=== PATIENT | female | born 1980 ===

== ENCOUNTER 2016-08-21 19:49 | Emergency (ER) | payer SELFPAY ==
[2016-08-21 19:56] VITALS: BP 122/76; PULSE 73; RESP 18; TEMP 99.2; O2SAT 100
--- NOTE | 2016-08-21 20:23 | ED PDOC ---
HPI: Female Pain Additional Complaint(s): 35yo F with PMHx SAB c/o vaginal bleeding. vaginal bleeding started at 4PM today after sexual intercourse, continued to have minimal spotting till now on pad. Denies blood clots, no blood in the toilet bowl. Denies fever, chills, nausea, vomiting, abdominal pain. Had 1st trimester US completed yesterday and told everything looked appropriate. OB at [facility], last visit 08/18/16. Blood type B+ <Valencia Sheriff - Last Filed: 08/21/16 22:03> <Rey Lee - Last Filed: 08/21/16 22:10> Time Seen by Provider: 08/21/16 20:11 Chief Complaint (Nursing): Female Genitourinary Supervising Attending Note - Supervising Attending Note The Documented history was done by the: Physician Craniologist, Attending Physician The documented physical exam was done by the: Physician Craniologist, Attending Physician The documented procedures were done by the: Physician Craniologist, Attending Physician - Attestation: I have personally seen and examined this patient.: Yes I have fully participated in the care of the patient.: Yes I have reviewed all pertinent clinical information, including history, physical exam and plan: Yes <Rey Lee - Last Filed: 08/21/16 22:10> Past Medical History Vital Signs: Last Vital Signs Temp 99.2 F 08/21/16 19:52 Pulse 73 08/21/16 19:52 Resp 18 08/21/16 19:52 BP 122/76 08/21/16 19:52 Pulse Ox 100 08/21/16 19:52 - Family History Family History: States: Unknown Family Hx - Immunization History Hx Tetanus Toxoid Vaccination: No Hx Influenza Vaccination: No Hx Pneumococcal Vaccination: No <Ricco Sheriffg - Last Filed: 08/21/16 22:03> Vital Signs: Last Vital Signs Temp 99.2 F 08/21/16 19:52 Pulse 73 08/21/16 19:52 Resp 18 08/21/16 19:52 BP 122/76 08/21/16 19:52 Pulse Ox 100 08/21/16 20:36 <Rey Lee - Last Filed: 08/21/16 22:10> - Home Medications Home Medications: Ambulatory Orders Medication Instructions Recorded Cyclobenzaprine [Cyclobenzaprine 10 mg PO BID #15 tab 04/18/16 HCl] Ibuprofen [Motrin Tab] 600 mg PO Q6 #30 tab 04/18/16 - Allergies Allergies/Adverse Reactions: Allergies Allergy/AdvReac Type Severity Reaction Status Date / Time No Known Allergies Allergy Verified 03/01/16 11:18 Review of Systems ROS Statement: Except As Marked, All Systems Reviewed And Found Negative Gastrointestinal: Negative for: Nausea, Vomiting, Abdominal Pain Genitourinary Female: Positive for: Vaginal Bleeding. Negative for: Dysuria, Hematuria < - Last Filed: 08/21/16 22:03> Physical Exam - Physical Exam Appears: Positive for: Well, No Acute Distress Head Exam: Positive for: ATRAUMATIC, NORMAL INSPECTION Skin: Positive for: Warm, Dry Eye Exam: Positive for: Normal appearance. Negative for: Scleral icterus Neck: Positive for: Normal, Supple Cardiovascular/Chest: Positive for: Regular Rate, Rhythm Respiratory: Positive for: Normal Breath Sounds Gastrointestinal/Abdominal: Positive for: Normal Exam, Bowel Sounds, Soft. Negative for: Tenderness, Guarding <g - Last Filed: 08/21/16 22:03> - ECG O2 Sat by Pulse Oximetry: 100 < - Last Filed: 08/21/16 22:03> Medical Decision Making Medical Decision Makin [place] [facility] [place]A Blood type B+ reassessment [address] [facility] [place] [id number] [place] limited results as above d/c home, FU with OB Dr. Benton Oakley < - Last Filed: 08/21/16 22:03> Medical Decision Making: TECHNIQUE: Real-time transabdominal obstetrical ultrasound of the maternal pelvis and a first trimester with image documentation. COMPARISON: No relevant prior studies available. FINDINGS: Gestation: Single live intrauterine gestation. heart rate of 169 beats per minute. [place]-rump length of 2.42 cm, correlating with gestational age of 9 weeks 1 day. Uterus/cervix: No subchorionic hemorrhage. No cervical dilatation or effacement. 1.5 x 1.1 x 1.5 cm lower anterior uterine mass. Ovaries: RIGHT ovary: 3.8 x 4.5 x 4.6 cm anechoic lesion. LEFT ovary: Normal. No adnexal masses. Free fluid: No significant free fluid. IMPRESSION: 1. Single live intrauterine gestation. 2. Probable fibroid. 3. RIGHT ovarian cyst. 4. Incidental/non-acute findings are described abov <Rey Lee - Last Filed: 08/21/16 22:10> Disposition - Disposition Disposition Time: 22:07 <Valencia Sheriff - Last Filed: 08/21/16 22:03> - Patient ED Disposition Is Patient to be Admitted: No Doctor Will See Patient In The: Office Counseled Patient/Family Regarding: Studies Performed, Diagnosis, Need For Followup - Disposition Disposition: Routine/Home <Rey Lee - Last Filed: 08/21/16 22:10> - Clinical Impression Clinical Impression: Vaginal bleeding before 22 weeks gestation - Disposition Referrals: [facility] [Outside] Benton Oakley MD [Family Provider] - Condition: GOOD Additional Instructions: Follow up with your PCP in 2-3 days. Instructions: Threatened Miscarriage (ED) Print Language: SETSWANA
[2016-08-21 20:51] LABS: RBC URINE 2 /hpf (0-3); URINE BILIRUBIN NEGATIVE (NEGATIVE); URINE BLOOD LARGE (NEGATIVE); URINE COLOR YELLOW (YELLOW); URINE GLUCOSE (UA) NEG (Normal); URINE KETONE NEGATIVE (NEGATIVE); URINE LEUKOCYTE ESTERASE NEG Leu/uL (Negative); URINE PROTEIN NEGATIVE (NEGATIVE); URINE UROBILINOGEN 0.2-1.0 mg/dL (0.2-1.0); WBC URINE 2 /hpf (0-5)
--- NOTE | 2016-08-21 21:27 | US ---
EXAM: US First Trimester, Transabdominal CLINICAL HISTORY: 35 years old, female; Signs and symptoms; Lmp or gestational age (in weeks): 06/18/16; Antepartum complications; Other: Spotting; ; Additional info: Vaginal bleeding, spotting TECHNIQUE: Real-time transabdominal obstetrical ultrasound of the maternal pelvis and a first trimester with image documentation. COMPARISON: No relevant prior studies available. FINDINGS: Gestation: Single live intrauterine gestation. heart rate of 169 beats per minute. [place]-rump length of 2.42 cm, correlating with gestational age of 9 weeks 1 day. Uterus/cervix: No subchorionic hemorrhage. No cervical dilatation or effacement. 1.5 x 1.1 x 1.5 cm lower anterior uterine mass. Ovaries: RIGHT ovary: 3.8 x 4.5 x 4.6 cm anechoic lesion. LEFT ovary: Normal. No adnexal masses. Free fluid: No significant free fluid. IMPRESSION: 1. Single live intrauterine gestation. 2. Probable fibroid. 3. RIGHT ovarian cyst. 4. Incidental/non-acute findings are described above.
== END 2016-08-21 22:09 | disposition home or self-care (01) ==
LOC: H.ER 19:49
DX: O20.8 Other hemorrhage in early pregnancy (principal); N83.201 Unspecified ovarian cyst, right side

== ENCOUNTER 2016-12-22 17:00 | Emergency (ER) | payer MEDICAID ==
[2016-12-22 17:20] VITALS: BP 116/67; PULSE 85; RESP 16; TEMP 97.6; O2SAT 100
--- NOTE | 2016-12-22 17:35 | ED PDOC ---
HPI: CCC, URI, Sore Throat Time Seen by Provider: 12/22/16 17:21 Chief Complaint (Nursing): Cough, Cold, Congestion Chief Complaint (Provider): URI symptoms History Per: Patient Onset/Duration Of Symptoms: Days (3) Current Symptoms Are (Timing): Still Present Location Of Pain: Throat Associated Symptoms: Fever (subjective), Sore Throat, Cough, Sinus Drainage, Nasal Congestion. denies: Sputum, Myalgias, Vomiting, Diarrhea, Other ( abdominal pain or vaginal discharge or bleeding) Severity: Moderate Additional Complaint(s): Pt 26 weeks Past Medical History Reviewed: Historical Data, Nursing Documentation, Vital Signs Vital Signs: Last Vital Signs Temp 97.6 F 12/22/16 17:17 Pulse 85 12/22/16 17:17 Resp 16 12/22/16 17:17 BP 116/67 12/22/16 17:17 Pulse Ox 100 12/22/16 17:36 - Medical History PMH: No Chronic Diseases - Surgical History Surgical History: No Surg Hx - Family History Family History: States: No Known Family Hx - Social History Current smoker - smoking cessation education provided: No - Immunization History Hx Tetanus Toxoid Vaccination: No Hx Influenza Vaccination: No Hx Pneumococcal Vaccination: No - Home Medications Home Medications: Ambulatory Orders Medication Instructions Recorded Cyclobenzaprine [Cyclobenzaprine 10 mg PO BID #15 tab 04/18/16 HCl] Ibuprofen [Motrin Tab] 600 mg PO Q6 #30 tab 04/18/16 Budesonide [Rhinocort Allergy] 2 spray NS BID #1 bottle 12/22/16 Loratadine [Claritin] 10 mg PO DAILY #14 tab 12/22/16 - Allergies Allergies/Adverse Reactions: Allergies Allergy/AdvReac Type Severity Reaction Status Date / Time No Known Allergies Allergy Verified 03/01/16 11:18 Review of Systems ROS Statement: Except As Marked, All Systems Reviewed And Found Negative (and as per HPI) Constitutional: Positive for: Fever ENT: Positive for: Nose Discharge, Nose Congestion, Throat Pain. Negative for: Throat Swelling Cardiovascular: Negative for: Chest Pain Respiratory: Positive for: Cough Physical Exam - Reviewed Nursing Documentation Reviewed: Yes Vital Signs Reviewed: Yes - Physical Exam Appears: Positive for: Well, No Acute Distress Head Exam: Positive for: ATRAUMATIC, NORMOCEPHALIC Skin: Positive for: Warm, Dry Eye Exam: Positive for: EOMI, PERRL ENT: Positive for: Pharynx Is (clear), Nasal Congestion (boggy turbinates with minimal erythema). Negative for: Sinus Pain/Drainage, Pharyngeal Erythema, Tonsillar Exudate Neck: Positive for: Painless ROM, Supple Cardiovascular/Chest: Positive for: Regular Rate, Rhythm, Chest Non Tender. Negative for: Murmur Respiratory: Positive for: Normal Breath Sounds. Negative for: Rales, Wheezing , Respiratory Distress Gastrointestinal/Abdominal: Positive for: Other (gravid >20 weeks). Negative for: Tenderness Back: Positive for: Normal Inspection. Negative for: Decreased ROM Extremity: Positive for: Normal ROM Lymphatic: Negative for: Adenopathy Neurologic/Psych: Positive for: Alert. Negative for: Motor/Sensory Deficits - ECG O2 Sat by Pulse Oximetry: 100 Disposition - Clinical Impression Clinical Impression: rhinitis, URI, acute Counseled Patient/Family Regarding: Studies Performed, Diagnosis, Need For Followup, Rx Given - Disposition Referrals: [facility] [Outside] (VISITA A ALEX [facility] EN 5-7 HASKINS A CHEQAR DE NEUVO) Disposition: Routine/Home Disposition Time: 18:00 Condition: STABLE Prescriptions: Budesonide [Rhinocort Allergy] 2 spray NS BID #1 bottle Loratadine [Claritin] 10 mg PO DAILY #14 tab Instructions: Budesonide (Into the nose), Upper Respiratory Infection (ED), Allergic Rhinitis (ED) Print Language: UZBEK
== END 2016-12-22 18:40 | disposition home or self-care (01) ==
LOC: H.ER 17:00
DX: J31.0 Chronic rhinitis (principal); J06.9 Acute upper respiratory infection, unspecified; Z33.1 Pregnant state, incidental

== ENCOUNTER 2017-03-31 05:06 | Emergency (ER) | payer MEDICAID, SELFPAY ==
--- NOTE | 2017-03-31 07:56 | OBHP ---
Datetime: 03/31/2017 06:38 IP Adm Impression: Term, intrauterine IP Admit Plan: Observation/Evaluation Admit Comment, IP Provider: 36 y/o F at 40.6 weeks GA, BINU 03/25/17 by LMP 06/18/16 and confir med by 1st trim US, c/o LOF and scant bleeding that began at 4 am today. Pt reports feeling and seein g small quantitify of clear liquid and some blood spotting. No frequent CTX reported. FM present. Pt with GDM which is controlled with diet only. Pt denies fever, headache, dizziness, CP, SOB, urinary c omplaints or rash. NKDA PNC Clinic: [facility]. PN Labs: GBS POSITIVE, GC/Chlamydia neg, HIV, neg, HBsAg neg, RPR neg, blood group B pos, antibody neg, rubella immune. US at 39 weeks GA: cephalic presentation, MANINDER normal and EFW _3844gr. OBHx: , 1 spontaneous at 8 weeks GA. GDMA1 with current . PMHx: denied. PSHx: denied FHx: denied. SHx: No tobacco, alcohol or rec drugs. A/P: 36 y/o F with IUP at 40.6 weeks GA, GDM A1 and AMA, with supected ROM. - Monitor FHT. - Will re-evalaute pt in 1 hour. Case discussed with Dr Rodriguez, OB health information director. Timmy PGY-1 Patient was seen with resident and I agree with the note. bedside sonogram adequate fluid vertexpr esentation will d/c home f/u this evening for IOL Pelvic Type - PN: Adequate Extremities - PN: Normal Abdomen - PN: Normal Lungs - PN: Normal Heart - PN: Normal Thyroid - PN: Normal Neurologic - PN: Normal HEENT - PN: Normal General - PN: Normal Presentation-Admit: Vertex FHR - Baseline A Provider: 145 Membranes, Provider: Intact Gestation - Est Wks by US: 40.6 Pool Provider: Negative Nitrazine Provider: Negative IP Hx Assessment: The History has been Reviewed and is Current EGA AdmitDate IP: 40.6 Vital Signs Provider: Reviewed IP Chief Complaint: Suspected ruptured membranes NICHD Variability Prov Fetus A: Moderate 6-25bpm FHR Category Provider Fetus A: Category I Dilatation, Provider: 1-2 Effacement, Provider: 50% Station, Provider: -2
== END 2017-03-31 08:30 | disposition home or self-care (01) ==
LOC: H.EROB2 05:06
DX: O47.1 False labor at or after 37 completed weeks of gestation (principal); Z3A.40 40 weeks gestation of pregnancy; O24.419 Gestational diabetes mellitus in pregnancy, unspecified control

== ENCOUNTER 2017-03-31 10:39 | Inpatient (IN) | payer MEDICAID, SELFPAY ==
[2017-03-31 12:01] VITALS: BMI 32.1
[2017-03-31] MEDS ORDERED: AMPicillin 2 GM in Sodium Chloride 0.9% 100 ML IVPB STA (12:01)
[2017-03-31] MEDS ORDERED: AMPicillin 1 GM in Sodium Chloride 0.9% 100 ML IVPB SCH (12:15)
--- NOTE | 2017-03-31 13:05 | OBHP ---
Datetime: 03/31/2017 11:00 IP Adm Impression: Term, intrauterine ; No Active Labor; Intact Membranes IP Admit Plan: Admit to unit; Initiate labor induction protocol Admit Comment, IP Provider: IUP at 40+w GDMA1 sent home a few hour sago. She still has ctx pain, Wants to be admitted for IOL. Doesnt' want to go home and come back..+FM; no VB; no SROM PNC: [facility] see previous note GBS+ A: IUP at 40w early labor PLAN Admit to L_D observe progress Discussion abotu IOL, pain management, medications, labor and delivey...she agrees to starting Cyt otec. Check Accuchecks Pelvic Type - PN: Adequate Extremities - PN: Normal Abdomen - PN: Normal Back - PN: Normal Breast - PN: Not Done Lungs - PN: Normal Heart - PN: Normal Thyroid - PN: Normal Neurologic - PN: Normal HEENT - PN: Normal General - PN: Normal Presentation-Admit: Vertex Membranes, Provider: Intact Comments, ACOG Physical Exam: PN Labs: GBS POSITIVE, GC/Chlamydia neg, HIV, neg, HBsAg neg, RPR neg, blood group B pos, antibody neg, rubella immune. US at 39 weeks GA: cephalic presentation, MANINDER normal and EFW _3844gr. OBHx: , 1 spontaneous at 8 weeks GA. GDMA1 with current . PMHx: denied. PSHx: denied FHx: denied. SHx: No tobacco, alcohol or rec drugs. Pool Provider: Negative IP Hx Assessment: The History has been Reviewed and is Current EGA AdmitDate IP: 40.6 IP Chief Complaint: Uterine contractions FHR Category Provider Fetus A: Category I NICHD Decel Fetus A IP Provider: None Dilatation, Provider: 1 Effacement, Provider: long Station, Provider: high Genitourinary Exam: Normal DTRs - PN: Normal
[2017-03-31 13:13] LABS: BASO % 0.4 % (0.0-2.0); EOS % 0.4 % (0.0-4.0); LYMPH # 1.3 K/uL (1.0-4.3); LYMPH % 15.7 % (20.0-40.0); MEAN CELL VOLUME 93.9 fl (81.0-99.0); MEAN CORPUSCULAR HEMOGLOBIN 32.1 pg (27.0-31.0); MEAN CORPUSCULAR HGB CONC 34.2 g/dL (33.0-37.0); MEAN PLATELET VOLUME 11.3 fl (7.2-11.7); MONO # 0.7 K/uL (0.0-0.8); MONO % 7.9 % (0.0-10.0); NEUT # 6.5 K/uL (1.8-7.0); NEUT % 75.6 % (50.0-75.0); NRBC % 0.2 % (0.0-0.0); RED CELL DISTRIBUTION WIDTH 13.7 % (11.5-14.5); WHITE BLOOD COUNT 8.6 K/uL (4.8-10.8)
[2017-03-31 13:17] LABS: BLOOD UREA NITROGEN 10 mg/dl (7-17); CALCIUM 9.5 mg/dL (8.4-10.2); CARBON DIOXIDE 21 mmol/L (22-30); CHLORIDE 106 mmol/L (98-107); GFR AFRICAN-AMERICAN > 60; GLUCOSE,RANDOM 73 mg/dL (65-105); POTASSIUM 4.1 MMOL/L (3.6-5.0); SODIUM 133 mmol/l (132-148)
[2017-03-31] MEDS: Lactated Ringer's 1,000 ML IV SCH ×3 (18:15→21:30)
[2017-03-31 18:32] LABS: BLOOD UREA NITROGEN 8 mg/dl (7-17); CALCIUM 9.2 mg/dL (8.4-10.2); CARBON DIOXIDE 21 mmol/L (22-30); CHLORIDE 105 mmol/L (98-107); GFR AFRICAN-AMERICAN > 60; GLUCOSE,RANDOM 88 mg/dL (65-105); POTASSIUM 3.7 MMOL/L (3.6-5.0); SODIUM 135 mmol/l (132-148)
[2017-03-31] MEDS ORDERED: Fentanyl/Bupivacaine HCl 250 ML EPI ONE (21:03)
--- NOTE | 2017-03-31 21:18 | OBADHP ---
Datetime: 03/31/2017 21:17 Presentation-Admit: Vertex FHR - Baseline A Provider: 130 NICHD Variability Prov Fetus A: Moderate 6-25bpm NICHD Accel Fetus A IP Provider: 15X15 FHR Category Provider Fetus A: Category I Datetime: 03/31/2017 11:00 Admit Comment, IP Provider: IUP at 40+w GDMA1 sent home a few hour sago. She still has ctx pain, Wants to be admitted for IOL. Doesnt' want to go home and come back..+FM; no VB; no SROM PNC: CFH see previous note GBS+ A: IUP at 40w early labor PLAN Admit to L_D observe progress Discussion abotu IOL, pain management, medications, labor and delivey...she agrees to starting Cyt otec. Check Accuchecks Pelvic Type - PN: Adequate Extremities - PN: Normal Abdomen - PN: Normal Back - PN: Normal Breast - PN: Not Done Lungs - PN: Normal Heart - PN: Normal Thyroid - PN: Normal Neurologic - PN: Normal HEENT - PN: Normal General - PN: Normal Membranes, Provider: Intact Comments, ACOG Physical Exam: PN Labs: GBS POSITIVE, GC/Chlamydia neg, HIV, neg, HBsAg neg, RPR neg, blood group B pos, antibody neg, rubella immune. US at 39 weeks GA: cephalic presentation, MANINDER normal and EFW _3844gr. OBHx: , 1 spontaneous at 8 weeks GA. GDMA1 with current . PMHx: denied. PSHx: denied FHx: denied. SHx: No tobacco, alcohol or rec drugs. Pool Provider: Negative IP Hx Assessment: The History has been Reviewed and is Current IP Chief Complaint: Uterine contractions NICHD Decel Fetus A IP Provider: None Dilatation, Provider: 1 Effacement, Provider: long Station, Provider: high Genitourinary Exam: Normal DTRs - PN: Normal EGA AdmitDate IP: 40.6 IP Adm Impression: Term, intrauterine ; No Active Labor; Intact Membranes IP Admit Plan: Admit to unit; Initiate labor induction protocol Datetime: 03/31/2017 06:38 Gestation - Est Wks by US: 40.6 Nitrazine Provider: Negative Vital Signs Provider: Reviewed
--- NOTE | 2017-03-31 21:35 | OBPN ---
Datetime: 03/31/2017 21:17 IP Progress Impression: Normal progression of labor; Reassuring heart rate IP Informed Consent Obtain: Vaginal Delivery; Risks, Benefits and Alternatives Discussed IP Progress Plan: Continue present management; Augmentation; Anesthesia consult FHR - Baseline A Provider: 130 Presentation-Admit: Vertex IP Progress Note Comment: Late entry...Notified that she was 3cm and c/o painful CTX. LAtnet phase of labor PLAN pt wanted epidural...given IV hyration...later there was an emergency section...now being giv en epidural...monitor progress. Discussion about augmentatoin NICHD Accel Fetus A IP Provider: 15X15 FHR Category Provider Fetus A: Category I NICHD Variability Prov Fetus A: Moderate 6-25bpm Datetime: 03/31/2017 11:00 Pool Provider: Negative Membranes, Provider: Intact Dilatation, Provider: 1 Effacement, Provider: long Station, Provider: high NICHD Decel Fetus A IP Provider: None Datetime: 03/31/2017 06:38 Nitrazine Provider: Negative Gestation - Est Wks by US: 40.6 Vital Signs Provider: Reviewed
[2017-03-31] MEDS ORDERED: Oxytocin 30 UNITS in Sodium Chloride 0.9% 500 ML IV SCH (21:45)
[2017-04-01] MEDS ORDERED: Oxytocin 30 UNITS in Sodium Chloride 0.9% 500 ML IV ONE (02:41)
[2017-04-01] MEDS ORDERED: Sodium Chloride 0.9% 1,000 ML IV ONE (05:54)
--- NOTE | 2017-04-01 06:01 | OBPN ---
Datetime: 04/01/2017 05:44 IP Progress Impression: Normal progression of labor IP Informed Consent Obtain: Vaginal Delivery; Risks, Benefits and Alternatives Discussed IP Procedures: Intrauterine Pressure Catheter; Amnio Infusion IP Progress Plan: Continue present management; Augmentation; Anticipate Vaginal Delivery Contraction Comments Provider: unable to montior well FHR - Baseline A Provider: 150 Presentation-Admit: Vertex IP Progress Note Comment: Notified that she had one decel at 3:40am and was 5-6cm. She had SROM at 2 :15am Accucheck at 2am - 84mg/dl 41w IUP Moderate meconium GDMA1 - controlled PLAN: Pitocin at 6miu/h IUPC Amnioinfusion NICHD Accel Fetus A IP Provider: 15X15 FHR Category Provider Fetus A: Category II NICHD Variability Prov Fetus A: Moderate 6-25bpm Dilatation, Provider: 9 Effacement, Provider: 100 Station, Provider: 0 NICHD Decel Fetus A IP Provider: Early Datetime: 04/01/2017 00:00 Vital Signs Provider: Reviewed
[2017-04-01] MEDS: Lactated Ringer's 1,000 ML IV SCH (08:00)
[2017-04-01] MEDS ORDERED: Lidocaine 1% Inj (20ml) ONE ×2 (08:10→11:16)
[2017-04-01] MEDS ORDERED: Lidocaine 2% PF (10 ml) Amp ONE (12:00)
[2017-04-01] MEDS ORDERED: Propofol 10 mg/ml Inj (20 ML) ONE (12:00)
[2017-04-01] MEDS ORDERED: Midazolam 2 MG/2 ML VIAL ONE (12:00)
[2017-04-01] MEDS ORDERED: Oxycodone/Acetaminophen 5/325 mg Tab PO PRN ×2 (14:44)
[2017-04-01] MEDS ORDERED: Benzocaine/Menthol SPRAY TOP PRN (14:44)
--- NOTE | 2017-04-02 07:57 | OBDS ---
DELIVERY PERSONNEL Delivery Doctor: Isa Monge MD Business Executive: Dominique Soni RN/Gabriella Garcia Anesthesiologist: Daniel Causey MD MATERNAL INFORMATION Delivery Anesthesia: Epidural Medications in Delivery: Pitocin Estimated Blood Loss (ml): 400 Placenta Cultured: No Maternal Complications: None RN Comments: 1157Pt in to OR for repair of 2nd degree laceration.pt given conscious sedation and re pair started at 12:[address] Monge assisted by Richie Osorio OBT/OR tech. Procedure finished at 12:50 . Provider Comments: . Pt delivered viable with Apgars 9/9. Placenta delivered spontaneously. Second degree deep laceration. Due to inability to fully assess and repair, decision made to go to OR for eval and rep air. In OR, Full assessment of perineum, vagina and cervix confirmed deep second degree laceration. la ceration repaired with 2.0 rapide without complication. After repair, vagina packed with iodoform pa cking. Site hemostatic following repair. Pt given IV sedation via anesthesiologist. LABOR SUMMARY EDC: 03/25/2017 00:00 No. Babies in Womb: 1 Attempted: No Labor Anesthesia: Epidural LABOR INFORMATION Reason for Induction: Other Onset of Labor: 04/01/2017 02:15 Complete Dilatation: 04/01/2017 07:45 Cervical Ripening Agents: Cervidil Oxytocin: Augmentation Group B Beta Strep: Positive Antibiotics # of Doses: Ampicillin 2 grams/ampicillin 1 gram Antibiotics Time of Last Dose: 0545 Steroids Given: None Reason Steroids Not Administered: Not Applicable MEMBRANES Membranes Rupture Method: Spontaneous Rupture of Membranes: 04/01/2017 02:45 Length of Rupture (hrs): 8.35 Amniotic Fluid Color: Light Meconium Amniotic Fluid Amount: Moderate Amniotic Fluid Odor: Normal STAGES OF LABOR Stage 1 hrs: 5 Stage 1 min: 30 Stage 2 hrs: 3 Stage 2 min: 21 Stage 3 hrs: 0 Stage 3 min: 5 Total Time in Labor hrs: 8 Total Time in Labor min: 56 VAGINAL DELIVERY Episiotomy: None Laceration Extension: Second Degree Laceration Repair: Yes Laceration Repair Note: Refer to delivery note Initial Vag Sponge Count: sponges=40(delivery room) sponges=40( OR) Final Vag Sponge Count: sponges=40 delivery room) sponges=40(OR) Initial Vag Sharps Count: sharps=6 (Delivery room /6(OR) Final Vag Sharps Count: sharps=6deliveryroom/6(OR) Sponge Count Correct: Yes Sharps Count Correct: N/A Count Comment: count correct on both delivery room and OR BABY A INFORMATION Delivery Date/Time: 04/01/2017 11:06 Method of Delivery: Vaginal Born in Route : No : N/A Forceps: N/A Vacuum Extraction: N/A Shoulder Dystocia : No SHOULDER DYSTOCIA BABY A Infant Delivery Date/Time: 04/01/2017 11:06 PRESENTATION/POSITION BABY A Presentation: Cephalic Cephalic Presentation: Vertex Breech Presentation: N/A PLACENTA INFORMATION BABY A Placenta Delivery Time : 04/01/2017 11:11 Placenta Method of Delivery: Spontaneous Placenta Status: Delivered SCORES BABY A Heart Rate 1 min: >100 bpm Resp Effort 1 min: Good Cry Reflex Irritability 1 min: Cough or Sneeze or Pulls Away Muscle Tone 1 min: Active Motion Color 1 min: Body [place], Extremities Blue Resuscitation Effort 1 min: Tactile Stimulation SCORE 1 MIN: 9 Heart Rate 5 min: >100 bpm Resp Effort 5 min: Good Cry Reflex Irritability 5 min: Cough or Sneeze or Pulls Away Muscle Tone 5 min: Active Motion Color 5 min: Body [place], Extremities Blue Resuscitation Effort 5 min: N/A SCORE 5 MIN: 9 INFORMATION BABY A Gestational Age at Delivery: 41.0 Gestational Status: Post-term Infant Outcome : Liveborn Infant Condition : Stable Sex: Male IDENTIFICATION/MEDS BABY A ID Band Number: [id number] ID Band Location: Left Leg; Left Arm Vitamin K Given : Not Given Erythromycin Given: Not Given WEIGHT/LENGTH BABY A Infant Birthweight (gms): 3350 Weight (lb): 7 Weight (oz): 6 Infant Length Inches: 21.50 Infant Length cms: 54.6 CORD INFORMATION BABY A No. Cord Vessels: 3 Nuchal Cord : N/A Nuchal Cord Other: n/a True Knot: 1 Cord pH Baby Arterial: n/a Cord pH Baby Venous: n/a Cord Blood Taken: Yes Banking/Donate Info: n/a Infant Suction: Mouth; Nose ASSESSMENT BABY A Complications: None Physical Findings at Delivery: Within Normal Limits Respirations: Appears Normal Assistant Chief Engineer/ALS Called : No Care By: Dr Ross/Enedelia/Felix ROJAS (Annotations: Data stored by N on behalf of user) Transferred To: Remains with Mother
[2017-04-02] MEDS: Multivitamin With Minerals Tab PO SCH (09:01)
[2017-04-02 09:10] LABS: HEMATOCRIT 34.1 % (34.0-47.0); MEAN CELL VOLUME 95.5 fl (81.0-99.0); MEAN CORPUSCULAR HGB CONC 33.5 g/dL (33.0-37.0); RED CELL DISTRIBUTION WIDTH 13.8 % (11.5-14.5); WHITE BLOOD COUNT 10.8 K/uL (4.8-10.8)
--- NOTE | 2017-04-02 12:13 | OBPPN ---
Datetime: 04/02/2017 06:41 PP Pain Prov: Within normal limits PP Nausea Prov: Denies PP Flatus Prov: Yes PP BM Prov: No PP Heart Prov: Normal PP Lungs Prov: Normal PP Abdomen/Uterus Prov: Normal PP Lochia Prov: Normal PP Vulva/Perineum Prov: Normal PP CVA Tenderness Prov: Normal PP Extremities Prov: Normal PP Impression Prov: Normal progression PP Plan Prov: Continue present management PP Progress Note Prov: 36 y/o F now on PPD 1. Pt had a on 04/01/17 with 2nd degree lac eration that needed repair in the OR. Pt reports feeling well. NO events overnight. Pt complains of t olerable burning pain when urinating. Pt afebrile and tolerating PO. Pt and supplementi ng with formula. Pt passing gasses but NO bowel movement yet. Pt ambulating and voiding with no diffi culties. Pt denies headache, visual disturbances, CP, SOB, N/V or rash. PE Gen: Pt resting comfortably on bed, AAOx3, not in acute distress. Lungs: CTA B/L. No W/R/R. CV: S1 S2 present, regular rhythm. Abd: BS+, soft, fundus of uterus firm and bellow umbilicus. Ext: no edema, neg Morgan's sign, non-tender calves. NEURO/PSYCH: no grossly focal deficit, preserved affect and mood. A/P 36 y/o F on PPD 1, recovering well. -Continue medical management. -Will apply dermoplast to affected area. - and ambulation encouraged. Case discussed with OB vanstone machine operator. Timmy PGY-1. Addendum by Dr. springer- I have evalauted the patient independently and I agree with the above. Vagi nal packing removed. Continue orders IP PP Procedures: None Vital Signs Provider PP: Reviewed
[2017-04-03] MEDS: Multivitamin With Minerals Tab PO SCH (09:07)
[2017-04-03 22:28] VITALS: BP 118/55; PULSE 70; RESP 19; TEMP 98.3; O2SAT 99
--- NOTE | 2017-04-03 23:24 | OBDCSUM ---
Datetime: 04/03/2017 11:05 Disch Instr Activity: Normal activity; May be up for meals; May Shower Disch Instr Diet: Regular Discharge Instructions, Provider: Routine instructions given Discharge Diagnosis, Provider: Term Delivered Follow up in weeks, Provider: 4-6 weeks Discharge Comment, Provider: 36 y/o F now on PPD 2. Pt had a on 04/01/17 with 2nd degr ee laceration that needed repair in the OR. Patient is now stable for discharge. -Continue medical management. -Will apply dermoplast to affected area. - and ambulation encouraged. -Ibuprofen RX given for pain Case discussed with OB cotton baler. Stephany Sanchez, PGY1 Contraception after Delivery: Undecided
--- NOTE | 2017-04-03 23:24 | OBPPN ---
Datetime: 04/03/2017 18:44 PP Pain Prov: Within normal limits PP Nausea Prov: Denies PP Flatus Prov: Yes PP BM Prov: No PP Breasts Prov: Not Done PP Heart Prov: Normal PP Lungs Prov: Normal PP Abdomen/Uterus Prov: Normal PP Lochia Prov: Normal PP CVA Tenderness Prov: Not Done PP Extremities Prov: Normal PP C/S Incision Prov: Not Applicable PP Progress Prov: Normal PP Impression Prov: Normal progression PP Plan Prov: Continue present management; Discharge PP Progress Note Prov: 36 y/o F now on PPD 2. Pt had a on 04/01/17 with 2nd degree lac eration that needed repair in the OR. Pt reports feeling well. NO events overnight. Pt afebrile and t olerating PO. Pt and supplementing with formula. Pt passing gasses but NO bowel movemen t yet. Pt ambulating and voiding with no difficulties. Pt denies headache, visual disturbances, CP, S OB, N/V or rash. Baby was circumcised with no complications. Vitals reviewed, wnl, afebrile PE Gen: Pt resting comfortably on bed, AAOx3, not in acute distress. Lungs: CTA B/L. No W/R/R. CV: S1 S2 present, regular rhythm. Abd: BS+, soft, fundus of uterus firm and bellow umbilicus. Ext: no edema, neg Morgan's sign, non-tender calves. NEURO/PSYCH: no grossly focal deficit, preserved affect and mood. A/P 36 y/o F on PPD 2, recovering well. Stable for discharge -Continue medical management. -Will apply dermoplast to affected area. - and ambulation encouraged. Case discussed with OB web communications specialist. Stephany Sanchez, PGY1 ob addendum: pt seen _ exmined by me. agree with above assessment and plan. IP PP Procedures: None Vital Signs Provider PP: Reviewed; Within Normal Limits
== END 2017-04-03 13:30 | disposition home or self-care (01) | DRG 372 ==
LOC: H.EROB2 10:39 → H.EROB 12:01 → H.L&D 14:42 → H.OB/GYN 04-01 14:57
PROVIDERS: ADMIT Obstetrics & Gynecology; ATTEND Obstetrics & Gynecology
PROC: 4A1HXCZ Monitoring of Products of Conception, Cardiac Rate, External Approach (ICD-10-PCS; 2017-03-31)
PROC: 10E0XZZ Delivery of Products of Conception, External Approach (ICD-10-PCS; principal; 2017-04-01)
PROC: 0KQM0ZZ Repair Perineum Muscle, Open Approach (ICD-10-PCS; 2017-04-01)
DX: O24.420 Gestational diabetes mellitus in childbirth, diet controlled (principal); O48.0 Post-term pregnancy; O70.1 Second degree perineal laceration during delivery; Z37.0 Single live birth; O77.0 Labor and delivery complicated by meconium in amniotic fluid; O99.824 Streptococcus B carrier state complicating childbirth; Z3A.41 41 weeks gestation of pregnancy